=== PATIENT | female | born 1950 | race Asian ===

== ENCOUNTER 2019-02-10 19:17 | Emergency (ER) | payer OTHER ==
[~2019-02-10] VITALS: Ht 167.6 cm; Wt 86.2 kg
[2019-02-10 19:23] VITALS: BP_SYST 126
--- NOTE | 2019-02-10 19:30 | NUR ---
Patient to ER bed 7 to gown for evaluation. Side rails up. Report given to Adam STOCK.
--- NOTE | 2019-02-10 19:40 | NUR ---
Pt was wheeled into ED by son, c/o right foot pain. Pt fractured her foot yesterday and was seen at urgent care today. Pt has splint and francesca wrap in place. Per son, pt's pain has increased since urgent care visit resulting in unable to bear weight on foot. Cap refill < 3. No other injuries/complaints per patient or noted.
--- NOTE | 2019-02-10 20:16 | NUR ---
ER at bedside examining patient.
[2019-02-10] MEDS ORDERED: MORPHINE 4 MG/ML INJ. SYRINGE IM ONE (20:45)
[2019-02-10] MEDS ORDERED: HYDROcodone/ACETAMIN 5-325 MG TAB (NORCO/ VICODIN) PO ONE (20:45)
[2019-02-10 21:16] VITALS: BP_SYST 119
--- NOTE | 2019-02-10 21:16 | NUR ---
Patient given written and verbal discharge instructions and verbalizes understanding. ER MD discussed with patient the results and treatment provided. Patient in stable condition. ID arm band removed. No Rx given. Patient educated on pain management and to follow up with PMD. Pain Scale 2. Opportunity for questions provided and answered. Medication side effect fact sheet provided.
== END 2019-02-10 21:16 | disposition home or self-care (01) ==
LOC: EDBD 19:17 → SED 19:17
DX: S82.844A Nondisplaced bimalleolar fracture of right lower leg, initial encounter for closed fracture (principal); W19.XXXA Unspecified fall, initial encounter; Y93.89 Activity, other specified; Y92.89 Other specified places as the place of occurrence of the external cause; Y99.8 Other external cause status
CPT/HCPCS: 99282; J2270